=== PATIENT | female | born 1985 | race Hispanic/Latino ===

== ENCOUNTER 2018-10-19 21:10 | Emergency (ER) | payer MEDICARE ==
--- NOTE | 2018-10-19 21:34 | Emergency Department Report ---
ED Head Trauma HPI - General Chief complaint: Headache Stated complaint: HEAD PAIN Time Seen by Provider: 10/19/18 21:27 Source: EMS Mode of arrival: Stretcher Limitations: No Limitations - History of Present Illness Initial comments: Patient is 33 years old female with history of posttraumatic stress disorder. Patient brought to the ER from [facility] for evaluation of head injury that happened yesterday. Patient stated that she accidentally hit the police car. Patient is complaining of headache and neck pain. Patient stated that she is slightly dizzy. Patient denied any other symptoms. MD Complaint: head injury -: Last night Mechanism of Injury: mechanical fall Location: frontal Loss of Consciousness: no Previous Trauma to this Area: No Place: outdoors Radiation: neck Severity: moderate Severity scale (0 -10): 4 Quality: dull Consistency: intermittent Associated Symptoms: denies other symptoms - Related Data Allergies/Adverse reactions: Allergies Allergy/AdvReac Type Severity Reaction Status Date / Time latex Allergy Itching Verified 10/19/18 21:31 Sulfa (Sulfonamide Allergy Hives Verified 10/19/18 21:30 Antibiotics) tramadol Allergy Itching Verified 10/19/18 21:31 ED Review of Systems ROS: Stated complaint: HEAD PAIN Other details as noted in HPI Comment: All other systems reviewed and negative Constitutional: denies: chills, fever Respiratory: denies: cough, shortness of breath, SOB with exertion, SOB at rest, wheezing Cardiovascular: denies: chest pain, palpitations Gastrointestinal: denies: abdominal pain, nausea, vomiting, diarrhea, constipation, hematemesis, hematochezia Musculoskeletal: denies: back pain Neurological: headache. denies: weakness, numbness, paresthesias, confusion, abnormal gait ED Past Medical Hx - Past Medical History Previous Medical History?: Yes Hx Hypertension: Yes Hx Diabetes: Yes Hx Seizures: Yes - Surgical History Past Surgical History?: No - Social History Smoking Status: Never Smoker Substance Use Type: None ED Physical Exam - General Limitations: No Limitations General appearance: alert, in no apparent distress - Head Head exam: Present: atraumatic, normocephalic, normal inspection - Eye Eye exam: Present: normal appearance, PERRL - ENT ENT exam: Present: normal exam, normal orophraynx, mucous membranes moist - Neck Neck exam: Present: normal inspection, full ROM. Absent: tenderness, meningismus, lymphadenopathy, thyromegaly - Respiratory Respiratory exam: Present: normal lung sounds bilaterally - Cardiovascular Cardiovascular Exam: Present: regular rate, normal rhythm, normal heart sounds - GI/Abdominal GI/Abdominal exam: Present: soft, normal bowel sounds. Absent: distended, tenderness, guarding, rebound, rigid, organomegaly, mass, bruit, pulsatile mass - Extremities Exam Extremities exam: Present: normal inspection, full ROM, normal capillary refill. Absent: pedal edema, calf tenderness - Back Exam Back exam: Present: normal inspection, full ROM. Absent: CVA tenderness (R), CVA tenderness (L), muscle spasm, paraspinal tenderness, vertebral tenderness - Neurological Exam Neurological exam: Present: alert, oriented X3, CN II-XII intact, normal gait, reflexes normal - Skin Skin exam: Present: warm, intact, normal color ED Course Vital Signs 10/19/18 10/19/18 21:19 22:20 Temperature 98.4 F Pulse Rate 86 Respiratory 16 16 Rate Blood Pressure 106/66 [Left] O2 Sat by Pulse 98 Oximetry - Lab Data Result diagrams: 10/19/18 21:44 10/19/18 21:44 Lab Results 10/19/18 10/19/18 10/19/18 Range/Units 21:39 21:44 21:44 WBC 10.9 (4.5-11.0) K/mm3 RBC 5.08 H (3.65-5.03) M/mm3 Hgb 14.9 H (10.1-14.3) gm/dl Hct 45.2 H (30.3-42.9) % MCV 89 (79-97) fl MCH 29 (28-32) pg MCHC 33 (30-34) % RDW 13.8 (13.2-15.2) % Plt Count 277 (140-440) K/mm3 Lymph % (Auto) 25.3 (13.4-35.0) % [place] % (Auto) 7.8 H (0.0-7.3) % Eos % (Auto) 1.9 (0.0-4.3) % Baso % (Auto) 0.4 (0.0-1.8) % Lymph # 2.7 (1.2-5.4) K/mm3 [place] # 0.9 H (0.0-0.8) K/mm3 Eos # 0.2 (0.0-0.4) K/mm3 Baso # 0.0 (0.0-0.1) K/mm3 Add Manual Diff Complete Seg Neutrophils % 64.7 (40.0-70.0) % Seg Neutrophils # 7.0 (1.8-7.7) K/mm3 Sodium 140 (137-145) mmol/L Potassium 4.1 (3.6-5.0) mmol/L Chloride 105.7 (98-107) mmol/L Carbon Dioxide 24 (22-30) mmol/L Anion Gap 14 mmol/L BUN 12 (7-17) mg/dL Creatinine 0.6 L (0.7-1.2) mg/dL Estimated GFR > 60 ml/min BUN/Creatinine Ratio 20 % Glucose 107 H (65-100) mg/dL Calcium 9.1 (8.4-10.2) mg/dL HCG, Qual Negative (Negative) - Radiology Data Radiology results: report reviewed - Medical Decision Making Patient is 33 years old female with history of posttraumatic stress disorder. Patient brought to the ER from [facility] for evaluation of head injury that happened yesterday. Patient stated that she accidentally hit the police car. Patient is complaining of headache and neck pain. Patient stated that she is slightly dizzy. Patient denied any other symptoms. CT brain, CT cervical spine is negative for acute finding. Labs reviewed and is unremarkable. Critical care attestation.: If time is entered above; I have spent that time in minutes in the direct care of this critically ill patient, excluding procedure time. ED Disposition Clinical Impression: Head injury, Neck injury Disposition: DC/TX-65 PSY HOSP/PSY UNIT Is pt being admited?: No Condition: Stable Instructions: Minor Head Injury (ED) Referrals: BELLA GRIJALVA [Other] - 3-5 Days
[2018-10-19 22:18] LABS: Hematocrit 45.2 % (30.3-42.9); Hemoglobin 14.9 gm/dl (10.1-14.3); Mean Corpuscular HGB Conc 33 % (30-34); Mean Corpuscular Volume 89 fl (79-97); Platelet Count 277 K/mm3 (140-440); Red Blood Count 5.08 M/mm3 (3.65-5.03); Red Cell Distribution Width 13.8 % (13.2-15.2)
[2018-10-19 22:27] LABS: BUN/Creatinine Ratio 20; Blood Urea Nitrogen 12 mg/dL (7-17); Calcium 9.1 mg/dL (8.4-10.2); Hemolysis Index 16
--- NOTE | 2018-10-19 22:37 | Cat Scan Report ---
Head CT without intravenous contrast INDICATION: Headache and syncope COMPARISON: None FINDINGS: The ventricles are normal in size and position. No hemorrhage or extra-axial fluid collecti on. No edema or mass effect. No focal infarct seen. Portions of the sinuses visualized are clear. No skull fracture identified. IMPRESSION: Negative head CT Automated exposure control was utilized to diminish radiation dose Signer Name: Avila Godwin MD Signed: 10/19/2018 10:33 PM Workstation Name: [id number]
[2018-10-19 22:50] LABS: Lymphocytes % (Auto) 25.3 % (13.4-35.0)
[2018-10-19 22:51] LABS: Basophils % (Auto) 0.4 % (0.0-1.8); Eosinophils % (Auto) 1.9 % (0.0-4.3); Lymphocytes # (Auto) 2.7 K/mm3 (1.2-5.4); Monocytes # (Auto) 0.9 K/mm3 (0.0-0.8); Monocytes % (Auto) 7.8 % (0.0-7.3)
[2018-10-19 22:52] LABS: Eosinophils # (Auto) 0.2 K/mm3 (0.0-0.4)
--- NOTE | 2018-10-19 22:55 | Cat Scan Report ---
CT of the cervical spine INDICATION: Neck pain following injury today FINDINGS: The vertebral body heights and disc spaces are intact. No vertebral body compression fractu re is seen. The facets are unremarkable as well with no arthropathy, facet lock or fracture. No epidu ral hematoma is seen. Spinous processes and odontoid are unremarkable. No abnormality seen. IMPRESSION: Negative cervical spine CT. All CT scans at this location are performed using CT dose reduction for ALARA by means of automated e xposure control Signer Name: Avila Godwin MD Signed: 10/19/2018 10:51 PM Workstation Name: [id number]
[2018-10-20 01:24] VITALS: BP 114/84
== END 2018-10-20 01:29 ==
LOC: ED 21:10
DX: S09.90XA Unspecified injury of head, initial encounter (principal); S19.9XXA Unspecified injury of neck, initial encounter; I10 Essential (primary) hypertension; E11.9 Type 2 diabetes mellitus without complications; Z91.040 Latex allergy status; Z88.2 Allergy status to sulfonamides; Z88.8 Allergy status to other drugs, medicaments and biological substances; W01.198A Fall on same level from slipping, tripping and stumbling with subsequent striking against other object, initial encounter; Y93.89 Activity, other specified; Y92.89 Other specified places as the place of occurrence of the external cause; Y99.8 Other external cause status
CPT/HCPCS: 36415; 70450; 72125; 80048; 84703; 85025

== ENCOUNTER 2018-10-31 10:49 | Emergency (ER) | payer MEDICARE ==
[2018-10-31] MEDS ORDERED: ZOFRAN ODT PO ONE (11:46)
[2018-10-31] MEDS ORDERED: IBUPROFEN PO ONE (11:46)
--- NOTE | 2018-10-31 11:46 | Emergency Department Report ---
ED Head Trauma HPI - General Chief complaint: Head Injury Stated complaint: THROAT PAIN/NECK AND HEAD TRAUMA Time Seen by Provider: 10/31/18 11:36 Source: patient Mode of arrival: Ambulatory Limitations: No Limitations - History of Present Illness Initial comments: Gwen is a 33 yo female with hx of DM, HTN, depression who presents with headache since head injury 11 days ago. Evaluated here by my colleague. Desires medication for pain and nausea. Mild global headache with sore throat. Hx of PTSD CThead/CT c-spine obtained 10/19/2018 both negative normal studies Complaint: head injury -: week(s) (2) Mechanism of Injury: mechanical fall Loss of Consciousness: no Previous Trauma to this Area: Yes Severity: mild Quality: dull Consistency: constant Provoking factors: none known Other Injuries: none Associated Symptoms: denies other symptoms - Related Data Previous Rx's Medication Instructions Recorded Last Taken Type Naproxen [Naprosyn] 500 mg PO BID #14 tablet 10/19/18 Unknown Rx Allergies/Adverse reactions: Allergies Allergy/AdvReac Type Severity Reaction Status Date / Time latex Allergy Itching Verified 10/19/18 21:31 Sulfa (Sulfonamide Allergy Hives Verified 10/19/18 21:30 Antibiotics) tramadol Allergy Itching Verified 10/19/18 21:31 ED Review of Systems ROS: Stated complaint: THROAT PAIN/NECK AND HEAD TRAUMA Other details as noted in HPI Comment: All other systems reviewed and negative Constitutional: denies: fever, malaise Gastrointestinal: denies: abdominal pain Neurological: headache. denies: numbness, paresthesias ED Past Medical Hx - Past Medical History Previous Medical History?: Yes Hx Hypertension: Yes Hx Diabetes: Yes Hx Seizures: Yes - Surgical History Hx Appendectomy: Yes - Social History Smoking Status: Never Smoker Substance Use Type: None - Medications Home Medications: Home Medications Medication Instructions Recorded Confirmed Last Taken Type Naproxen [Naprosyn] 500 mg PO BID #14 tablet 10/19/18 Unknown Rx ED Physical Exam - General Limitations: No Limitations General appearance: alert, in no apparent distress - Head Head exam: Present: atraumatic, normocephalic - Eye Eye exam: Present: normal appearance - ENT ENT exam: Present: mucous membranes moist - Neck Neck exam: Present: normal inspection, full ROM - Respiratory Respiratory exam: Present: normal lung sounds bilaterally. Absent: respiratory distress, wheezes, rales, rhonchi - Cardiovascular Cardiovascular Exam: Present: regular rate, normal rhythm, normal heart sounds. Absent: systolic murmur, diastolic murmur, rubs, gallop - GI/Abdominal GI/Abdominal exam: Present: soft, normal bowel sounds. Absent: distended, tenderness, guarding, rebound - Extremities Exam Extremities exam: Present: normal inspection - Back Exam Back exam: Present: normal inspection - Neurological Exam Neurological exam: Present: alert, oriented X3 - Psychiatric Psychiatric exam: Present: normal mood, flat affect - Skin Skin exam: Present: warm, dry, intact, normal color. Absent: rash ED Course Vital Signs 10/31/18 10:56 Temperature 98.3 F Pulse Rate 109 H Respiratory 20 Rate Blood Pressure 122/73 O2 Sat by Pulse 96 Oximetry - Medical Decision Making Gwen presents with headache after previous closed head injury. Given concussion precautions. Provided ibuprofen and Zofran in the ED. Critical care attestation.: If time is entered above; I have spent that time in minutes in the direct care of this critically ill patient, excluding procedure time. ED Disposition Clinical Impression: Concussion Disposition: DC-01 TO HOME OR SELFCARE Is pt being admited?: No Does the pt Need Aspirin: No Condition: Stable Instructions: Minor Head Injury (ED) Referrals: PRIMARY CARE, [Primary Care Provider] - 3-5 Days
[2018-10-31 11:54] VITALS: BP 121/70
[2018-10-31 12:14] LABS: Bilirubin,Urine NEG (Negative); Blood,Urine NEG (Negative); Color,Urine Yellow (Yellow); Mucus,Urine FEW /HPF; Protein,Urine <15 mg/dL mg/dL (Negative); Urobilinogen,Urine < 2.0 mg/dL (<2.0)
== END 2018-10-31 11:53 | disposition home or self-care (01) ==
LOC: ED 10:49
DX: S06.0X0A Concussion without loss of consciousness, initial encounter (principal); J02.9 Acute pharyngitis, unspecified; I10 Essential (primary) hypertension; E11.9 Type 2 diabetes mellitus without complications; F32.9 Major depressive disorder, single episode, unspecified; Z90.89 Acquired absence of other organs; Z91.040 Latex allergy status; Z88.2 Allergy status to sulfonamides; Z88.8 Allergy status to other drugs, medicaments and biological substances; X58.XXXA Exposure to other specified factors, initial encounter; Y93.89 Activity, other specified; Y92.89 Other specified places as the place of occurrence of the external cause; Y99.8 Other external cause status
CPT/HCPCS: 81001; Q0162